=== PATIENT | female | born 1980 | race Caucasian/White ===

== ENCOUNTER → 2024-04-10 | Outpatient (CLI) | payer OTHER, SELFPAY ==
[2024-04-10 08:54] LABS: Alanine Aminotransferase 43 U/L (10-49); Albumin, Serum 4.9 gm/dL (3.5-5.0); Albumin/Globulin Ratio 2.1 (1.2-2.2); Alkaline Phosphatase 92 U/L (46-116); Anion Gap 12 (7-16); Aspartate Amino Transferase 34 U/L (0-34); BUN/Creatinine Ratio 13 Ratio (12-20); Bilirubin,Total 0.4 mg/dL (0.3-1.2); Blood Urea Nitrogen 12 mg/dL (9-23); Calcium 9.7 mg/dL (8.3-10.6); Calcium (Corrected) 9.7 mg/dL (8.5-10.1); Carbon Dioxide 29.2 mMol/L (20.0-31.0); Chloride 96 mMol/L (98-107); Creatinine (Component) 0.9 mg/dL (0.6-1.3); Globulin 2.3 gm/dL (2.3-3.5); Glucose 149 mg/dL (74-106); Osmolality,Calculated 276 (275-295); Potassium 3.7 mMol/L (3.4-5.1); Sodium 137 mMol/L (136-145); Total Protein 7.2 gm/dL (5.7-8.2); eGFR > 60 See Note
[2024-04-10 08:59] LABS: Glucose Estimated Average 148 mg/dL (80-131); Hemoglobin A1C 6.8 % Hgb (4.8-6.0)
[2024-04-10 09:58] LABS: Creatinine MALB Rnd Ur 91 mg/dL (30-125); Microalbumin Creat Ratio 5 mg/gCrea (<30); Microalbumin, Random Urine 5 mg/L (0-300)
== END | disposition home or self-care (01) ==
LOC: COPL 07:50
PROVIDERS: PCP Family Medicine; Referring Provider Family Medicine; Visit Provider Family Medicine
DX: E11.65 Type 2 diabetes mellitus with hyperglycemia (principal)
CPT/HCPCS: 36415; 80053; 82043; 82570; 83036

== ENCOUNTER → 2024-08-07 | Outpatient (CLI) | payer OTHER, SELFPAY ==
[2024-08-07 09:34] LABS: Glucose Estimated Average 143 mg/dL (80-131); Hemoglobin A1C 6.6 % Hgb (4.8-6.0)
[2024-08-07 09:36] LABS: Creatinine MALB Rnd Ur 95 mg/dL (30-125); Microalbumin Creat Ratio 4 mg/gCrea (<30); Microalbumin, Random Urine 4 mg/L (0-300)
[2024-08-07 09:38] LABS: Alanine Aminotransferase 25 U/L (10-49); Albumin, Serum 4.9 gm/dL (3.5-5.0); Albumin/Globulin Ratio 2.1 (1.2-2.2); Alkaline Phosphatase 87 U/L (46-116); Anion Gap 12 (7-16); Aspartate Amino Transferase 22 U/L (0-34); BUN/Creatinine Ratio 17 Ratio (12-20); Bilirubin,Total 0.5 mg/dL (0.3-1.2); Blood Urea Nitrogen 17 mg/dL (9-23); Calcium 9.9 mg/dL (8.3-10.6); Calcium (Corrected) 9.9 mg/dL (8.5-10.1); Carbon Dioxide 25.8 mMol/L (20.0-31.0); Chloride 98 mMol/L (98-107); Globulin 2.3 gm/dL (2.3-3.5); Glucose 141 mg/dL (74-106); Osmolality,Calculated 275 (275-295); Potassium 3.2 mMol/L (3.4-5.1); Sodium 136 mMol/L (136-145); Total Protein 7.2 gm/dL (5.7-8.2); eGFR > 60 See Note
== END | disposition home or self-care (01) ==
LOC: COPL 08:07
PROVIDERS: PCP Family Medicine; Referring Provider Family Medicine; Visit Provider Family Medicine
DX: E11.65 Type 2 diabetes mellitus with hyperglycemia (principal)
CPT/HCPCS: 36415; 80053; 82043; 82570; 83036

== ENCOUNTER 2024-10-12 06:42 | Day surgery (SDC) | payer OTHER, SELFPAY ==
--- NOTE | 2024-10-09 07:00 | EKG_ITS ---
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
[2024-10-09 08:06] LABS: Basophils # (Auto) 0.1 Thou/mm3 (0.0-0.2); Basophils % (Auto) 1 % (0-2.5); Eosinophils # (Auto) 0.4 Thou/mm3 (0.0-0.5); Eosinophils % (Auto) 5 % (0-10); Hematocrit 35.3 % (36.0-46.0); Hemoglobin 10.4 g/dL (12.0-16.0); Immature Granulocytes Auto 0.03 Thou/mm3 (0.00-0.00); Lymphocytes # (Auto) 1.9 Thou/mm3 (1.0-4.8); Lymphocytes % (Auto) 25 % (10-50); Mean Corpuscular HGB Conc 29.5 g/dl (31.0-37.0); Mean Corpuscular Hemoglobin 19.5 pg (25.0-35.0); Mean Corpuscular Volume 66 fL (80-100); Monocytes # (Auto) 0.7 Thou/mm3 (0.0-0.8); Monocytes % (Auto) 9 % (0-12); Neutrophils # (Auto) 4.4 Thou/mm3 (1.8-7.7); Neutrophils % (Auto) 59 % (37-80); Nucleated Red Blood Cell # 0.00 Thou/mm3 (0.00-0.00); Nucleated Red Blood Cell % 0 /100 WBC (0); Platelet Count 485 Thou/mm3 (140-440); RDW Standard Deviation 41.3 fL (36.4-46.3); Red Blood Count 5.32 Miln/mm3 (4.00-5.20); White Blood Count 7.4 Thou/mm3 (3.6-11.0)
[2024-10-09 08:21] LABS: Anion Gap 12 (7-16); BUN/Creatinine Ratio 14 Ratio (12-20); Blood Urea Nitrogen 14 mg/dL (9-23); Calcium 9.4 mg/dL (8.3-10.6); Carbon Dioxide 31.3 mMol/L (20.0-31.0); Chloride 98 mMol/L (98-107); Creatinine (Component) 1.0 mg/dL (0.6-1.3); Glucose 167 mg/dL (74-106); Osmolality,Calculated 285 (275-295); Sodium 141 mMol/L (136-145); eGFR > 60 See Note
[2024-10-09 08:25] LABS: Potassium 2.7 mMol/L (3.4-5.1)
[2024-10-09 08:54] LABS: INR 0.9 (0.9-1.3); Partial Thromboplastin Time 26.5 Seconds (22.0-36.0); Prothrombin Time 10.2 Seconds (9.0-12.2)
--- NOTE | 2024-10-09 09:11 | PC.NURSE ---
notified dr valentine of critical value. states he'll take care of it .
[2024-10-12] VITALS (12 sets, daily range): BP systolic 110–128; BP diastolic 59–83; PULSE 68–88; RESP 12–18; TEMP 36.4–36.7; O2SAT 93–97
[2024-10-12 08:02] LABS: Anion Gap 11 (7-16); BUN/Creatinine Ratio 11 Ratio (12-20); Blood Urea Nitrogen 11 mg/dL (9-23); Calcium 8.9 mg/dL (8.3-10.6); Carbon Dioxide 30.9 mMol/L (20.0-31.0); Chloride 98 mMol/L (98-107); Creatinine (Component) 1.0 mg/dL (0.6-1.3); Estimated Creatinine Clearance 73.2 mL/min (>60); Glucose 125 mg/dL (74-106); Osmolality,Calculated 279 (275-295); Potassium 3.1 mMol/L (3.4-5.1); Sodium 140 mMol/L (136-145); eGFR > 60 See Note
[2024-10-12 08:38] LABS: HCG,Qualitative Serum Negative
--- NOTE | 2024-10-12 08:55 | ESOP_ITS ---
RE: FIDEL CHACON : 1980 DATE OF OPERATION: 10/12/2024 PROCEDURES PERFORMED: 1. Diagnostic left heart catheterization, selective coronary angiogram, left ventricular angiogram, CPT 11311 2. Conscious sedation, 30 minutes duration. 3. Ultrasound-guided access of the right radial artery. DIAGNOSES: Coronary artery disease, status post stent placement, recurrent chest pain, angina pectoris. HISTORY AND INDICATIONS: The patient is a 43-year-old female with a history of known CAD, who had a previous stent placement of the left anterior descending artery in 12/2022. She has been having recurrent anginal-type chest discomfort at rest with similar symptoms prior to her previous stent placement. Concerned about restenosis, hence a coronary angiogram was recommended to assess if the patient is candidate for coronary intervention and revascularization. PROCEDURE DETAILS: The patient was brought to the cardiac catheterization laboratory. She was given 2 mg of Versed and 50 mcg of fentanyl for sedation. A right radial approach was taken. The right radial artery was cannulated with a micropuncture technique and a 6-[place] Glidesheath was introduced. A radial cocktail consisting of nitroglycerin 200 mcg, verapamil 2.5 mg and heparin 2000 units was given. Selective right and left coronary angiograms, left heart catheterization, LV angiogram were performed by 5-[place] TIG-4 diagnostic catheter. The patient tolerated the procedure well. No complications. TR band was applied and hemostasis was secured. Coronary angiogram showed following findings: The right coronary artery is large and dominant, appears normal. PDA and posterolateral branches are normal. Left coronary system, the left main coronary artery is normal. The left anterior descending artery showed a stent which is widely patent in the proximal left anterior descending artery. No distal stenosis. Circumflex artery is nondominant, appears normal. Left ventricular pressure of 105/10, EDP of 12. Aortic pressure of 105/70. No gradient across the aortic valve. Left ventricular angiogram showed normal left ventricular wall motion with an ejection fraction of 70%. SUMMARY OF FINDINGS: 1. Nonobstructive coronary artery disease. 2. Widely patent stent involving the proximal left anterior descending artery. 3. Dominant right coronary artery, appears normal. 4. Normal left ventricular function. RECOMMENDATIONS: The patient is reassured about the absence of significant obstructive coronary artery disease. Her stent is widely patent more than 1-1/2 years after the stent deployment, unlikely to restenose at this point. She is reassured about excellent progress. Recommend continued medical management. Of note, the patient was hypokalemic preop, 2.7 potassium. Even after giving potassium chloride, she continued to be low at 3.1 potassium. Recommended to take potassium supplement 20 mEq daily. The patient's list does include hydrochlorothiazide that could be causing her hypokalemia. Hence, she should be continued on potassium chloride 20 mEq daily along with hydrochlorothiazide to prevent hypokalemia. DT: 08:20:41 TT: 08:53:00 Ref: [id number] - TID: [id number]
--- NOTE | 2024-10-12 11:07 | PC.NURSE ---
Escorted patient out via wheelchair. waiting in the car. No complaints or signs/symptoms of acute distress. Patient in good spirits. Patient stood up and took a few steps to get into car with .
--- NOTE | 2024-10-12 13:43 | PC.NURSE ---
1030 patient is awake, alert, breathing unlabored, s/p LHC by Dr. Vides, TR band has been removed at 0940 by Reyna HALL, no bleeding or hematoma noted to right wrist, report received from Reyna HALL, OK to discharge patient home after 1140 1h post TR band removal. 1058 patient is awake, alert, breathing unlabored, dressing dry with no bleeding or hematoma, IV removed, discharge instructions given, patient discharged home in wheelchair with all belongings.
== END 2024-10-12 10:58 | disposition home or self-care (01) ==
PROVIDERS: PCP Family Medicine; Referring Provider Internal Medicine Cardiovascular Disease; Visit Provider Internal Medicine Cardiovascular Disease
PROC: (CPT 93458; principal; 2024-10-12 07:30)
DX: I25.118 Atherosclerotic heart disease of native coronary artery with other forms of angina pectoris (principal); Z95.5 Presence of coronary angioplasty implant and graft; Z01.810 Encounter for preprocedural cardiovascular examination; R94.31 Abnormal electrocardiogram [ECG] [EKG]; E87.6 Hypokalemia; E78.00 Pure hypercholesterolemia, unspecified
CPT/HCPCS: 93458; 36415; 80048; 84703; 85025; 85610; 85730; 93005; 99152; A4649; C1769; C1887; C1894; J0168; J0461; J1643; J2250; J2310; J2371; J3010; J3490; Q9967; A9270

== ENCOUNTER → 2024-10-16 | Outpatient (CLI) | payer OTHER, SELFPAY ==
[2024-10-16 09:50] LABS: Glucose Estimated Average 146 mg/dL (80-131); Hemoglobin A1C 6.7 % Hgb (4.8-6.0)
== END | disposition home or self-care (01) ==
LOC: COPL 08:50
PROVIDERS: PCP Family Medicine; Referring Provider Family Medicine; Visit Provider Family Medicine
DX: E11.65 Type 2 diabetes mellitus with hyperglycemia (principal)
CPT/HCPCS: 36415; 83036

== ENCOUNTER → 2024-12-24 | Outpatient (CLI) | payer OTHER, SELFPAY ==
[2024-12-24 16:58] LABS: Glucose Estimated Average 146 mg/dL (80-131); Hemoglobin A1C 6.7 % Hgb (4.8-6.0)
== END | disposition home or self-care (01) ==
LOC: COPL 15:39
PROVIDERS: PCP Family Medicine; Referring Provider Family Medicine; Visit Provider Family Medicine
DX: E11.65 Type 2 diabetes mellitus with hyperglycemia (principal)
CPT/HCPCS: 36415; 83036